=== PATIENT | male | born 2000 | race Caucasian/White ===

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

== ENCOUNTER 2018-11-21 19:07 | Emergency (ER) | payer SELFPAY ==
[2018-11-21 19:33] VITALS: TEMP 99.2
--- NOTE | 2018-11-21 19:53 | RAD ---
EXAM: XR Left Ankle Complete, 3 or More Views CLINICAL HISTORY: 18 years old and is Male; fall TECHNIQUE: Frontal, lateral and oblique views of the left ankle. COMPARISON: No relevant prior studies available. FINDINGS: Limitations: None. Bones/joints: Unremarkable. No acute fracture. No dislocation. Soft tissues: Mild diffuse soft tissue swelling present. IMPRESSION: There is soft tissue swelling without acute bony abnormality. Electronically signed by: Gogo Boggs MD 11/21/2018 7:51 PM CDT
[2018-11-21] MEDS ORDERED: KETOROLAC TROMETHAMINE INJ 60 MG/2 ML VIAL IM ONE (19:57)
--- NOTE | 2018-11-21 19:59 | RAD ---
EXAM:Foot,Left 3 Views CLINICAL INDICATION: Left foot pain COMPARISON: There is no previous study for comparison. FINDINGS:Three views of the left foot demonstrate no evidence of fracture. There is no dislocation. There is no bony destruction to suggest osteomyelitis. No radiopaque foreign bodies are detected. IMPRESSION: Negative left foot radiographs. Electronically signed by: Javier Miguel MD 11/21/2018 7:57 PM CDT
[2018-11-21] MEDS: KETOROLAC TROMETHAMINE INJ 60 MG/2 ML VIAL IM ONE (20:02)
--- NOTE | 2018-11-21 20:17 | ED.PDOC ---
History of Present Illness - General Chief Complaint: Lower Extremity Injury Stated Complaint: left ankle injury yesterday Time Seen by Provider: 11/21/18 19:57 - History of Present Illness Initial Comments: 18 Y/O MALE, C/O L ANKLE AND FOOT PAIN, TWISTED L ANKLE EARLIER TODAY, C/O PAIN AND SWELLING, CONSTANT, MODERATE, WORSE WITH MOVEMENT AND TOUCH. DENIES KNEE OR HIP PAIN, NO CP, ABD CAO, NECK OR BACK PAIN, WHITE. Allergies/Adverse Reactions: Allergies NO KNOWN ALLERGY Allergy (Verified 11/21/18 19:33) Home Medications: Ambulatory Orders Meloxicam [Mobic] 15 mg PO DAILY 15 Days #15 tab 11/21/18 Review of Systems - Review of Systems Constitutional: States: no symptoms reported EENTM: States: no symptoms reported Respiratory: States: no symptoms reported Cardiology: States: no symptoms reported Gastrointestinal/Abdominal: States: no symptoms reported Musculoskeletal: States: joint pain, joint swelling. Denies: back pain, neck pain Past Medical History (General) - Patient Medical History Hx Seizures: No Hx Stroke: No Hx Dementia: No Hx Asthma: No Hx of COPD: No Hx Cardiac Disorders: No Hx Congestive Heart Failure: No Hx Pacemaker: No Hx Hypertension: No Hx Thyroid Disease: No Hx Diabetes: No Hx Gastroesophageal Reflux: No Hx Renal Disease: No Hx Cancer: No Hx of HIV: No Hx Hepatitis C: No Hx MRSA: No - Vaccination History Hx Tetanus, Diphtheria Vaccination: Yes Hx Influenza Vaccination: No Hx Pneumococcal Vaccination: No - Social History Hx Tobacco Use: Yes Hx Alcohol Use: Yes Hx Substance Use: No Hx Physical Abuse: No Hx Emotional Abuse: No Family Medical History - Family History Mother Family History: No Known Living Status: Still Living Hx Family Asthma: No Hx Family Congestive Heart Failure: No Hx Family Hypertension: Yes Hx Family Stroke: No Hx Cardiac Disease: No Hx Family Diabetes: No Hx Family Cancer: No Physical Exam - Physical Exam General Appearance: Alert, Comfortable Ears, Nose, Throat: normal ENT inspection, normal pharynx Neck: non-tender, full range of motion, supple Respiratory: chest non-tender, lungs clear, normal breath sounds Cardiovascular/Chest: normal peripheral pulses, regular rate, rhythm, no gallop Peripheral Pulses: dorsalis pedis,right: 2+, dorsalis pedis,left: 2+, posterior tibialis,right: 2+, posterior tibialis,left: 2+ Gastrointestinal/Abdominal: normal bowel sounds, non tender, soft Back Exam: normal inspection, no CVA tenderness Extremity: other - L ANKLE SWELLING AND SL ECCHYMOSIS, MAINLY LATERAL ASPECT, EXTENDS TO THE LATERAL ASPECT OF THE FOOT. ROM LIMITED DUE TO PAIN, N/V INTACT, GOOD PULSES. Neurologic: cook boat II-XII nml as tested, no motor/sensory deficits, alert Progress - Progress Progress: 11/21/18 20:19 STIRRUP SPLINT APPLIED, N/V INTACT. CRUTCHES AND INSTRUCTIONS GIVEN. ADVISED TO RT ER OF R/U WITH PCP IF ANY PROBLEMS. - EKG/XRAY/CT Xray Comments: XR: STS, NO FX Departure - Departure Clinical Impression: Left ankle sprain Disposition: Discharge to Home or Self Care Condition: Good Departure Forms: ED Discharge - Pt. Copy, Patient Portal Self Enrollment Instructions: DI for Leg Pain, DI for Trauma Diet: resume usual diet Referrals: Lon Linares MD [Primary Care Provider] - 1-2 Weeks Prescriptions: Meloxicam [Mobic] 15 mg PO DAILY 15 Days #15 tab Home Medications: Ambulatory Orders Meloxicam [Mobic] 15 mg PO DAILY 15 Days #15 tab 11/21/18
[2018-11-21 20:36] VITALS: BP 145/75; O2SAT 98
== END 2018-11-21 20:38 | disposition home or self-care (01) ==
LOC: ER 19:07
DX: S93.402A Sprain of unspecified ligament of left ankle, initial encounter (principal); Z87.891 Personal history of nicotine dependence; X50.9XXA Other and unspecified overexertion or strenuous movements or postures, initial encounter; Y92.009 Unspecified place in unspecified non-institutional (private) residence as the place of occurrence of the external cause
CPT/HCPCS: 73610; 73630; J1885